=== PATIENT | female | born 1965 ===

== ENCOUNTER 2018-08-13 00:18 | Emergency (ER) | payer SELFPAY ==
--- NOTE | 2018-08-13 02:39 | XRay Report ---
PROCEDURE: RIGHT FOREARM TECHNIQUE: RIGHT forearm radiographs, AP and lateral views. CPT 46717 HISTORY: Trauma COMPARISONS: None . FINDINGS: Fracture (s) and/or Dislocation(s): There is a questionable fracture of the radial head. Additional elbow study may be helpful. . Joint space(s): Normal . Soft tissues: There appears to be displacement of the elbow fat pads suggesting possible intra-artic ular effusion. . Bone mineralization: Normal . Foreign bodies: None . IMPRESSION: There is a questionable fracture of the radial head. Additional elbow study may be helpf ul. . There is no joint dislocation. There appears to be displacement of the elbow fat pads suggesting poss ible intra-articular effusion. . . This document is electronically signed by Nate Hunt MD., August 13 2018 02:36:52 AM ET
--- NOTE | 2018-08-13 02:59 | Cat Scan Report ---
PROCEDURE: CT HEAD/BRAIN WO CON TECHNIQUE: Computerized tomography of the head was performed without contrast material. CT DOSE LENGTH PRODUCT: mGycm HISTORY: fall with swelling and pain to face COMPARISONS: None . FINDINGS: Skull and scalp: There is frontal scalp soft tissue swelling. There is left frontal and periorbital soft tissue swelling. There is no skull fracture. . There is a fracture of the medial wall of the left orbit. Paranasal sinuses: Normal . Ventricles and subarachnoid spaces: Normal . Cerebrum: No evidence of hemorrhage, acute infarction or mass . Cerebellum and brainstem: No evidence of hemorrhage, acute infarction or mass . Vasculature: Normal . IMPRESSION: There is no intracranial hemorrhage, edema, mass, mass effect or midline shift. There is frontal scalp soft tissue swelling. There is left frontal and periorbital soft tissue swelli ng. There is no skull fracture. There is a fracture of the medial wall of the left orbit. This document is electronically signed by Nate Hunt MD., August 13 2018 02:57:42 AM ET
--- NOTE | 2018-08-13 03:04 | Cat Scan Report ---
PROCEDURE: CT CERVICAL SPINE WO CON TECHNIQUE: Computerized tomography of the cervical spine was performed from the skull base to T1 wit hout contrast material. CT DOSE LENGTH PRODUCT: mGycm HISTORY: fall with swelling and pain to face COMPARISONS: None . FINDINGS: There is slight reversal of cervical lordosis. There are multilevel degenerative disc changes. There are no fractures or malalignments. Facet joints are intact. Prevertebral soft tissues are normal in t hickness. IMPRESSION: There is no acute bony or soft tissue abnormality. . This document is electronically signed by Nate Hunt MD., August 13 2018 03:02:38 AM ET
[2018-08-13] MEDS ORDERED: NORCO 5/325 PO ONE (05:27)
--- NOTE | 2018-08-13 06:04 | Cat Scan Report ---
PROCEDURE: CT FACIAL BONES WO CON TECHNIQUE: Routine axial imaging was obtained of the facial bones without contrast with sagittal and coronal reconstructions. HISTORY: fall orbital fx left COMPARISONS: None FINDINGS: There is extensive left prefrontal, supraorbital and left preseptal soft tissues swelling. The orbita l rims and floors appear intact. There is localized dehiscence of the medial wall of the left orbit. This may be a chronic injury. There is no evidence of air within the left orbit. The intraorbital str uctures otherwise are unremarkable. The sinuses revealed mild mucosal thickening in the maxillary sin uses with patchy mucosal thickening in the left ethmoid air cells. The nasal bones and zygomatic arch es appear intact. The mandible shows no evidence of acute injury. IMPRESSION: Extensive left prefrontal, supraorbital and left preseptal soft tissue swelling. Localized dehiscence of the medial wall of the left orbit which may be related to a chronic injury. N o evidence of left-sided intraorbital emphysema or acute injury otherwise. No evidence of acute facial bone fracture. Sinusitis as described.. This document is electronically signed by Wally Brown MD., August 13 2018 06:01:57 AM ET
--- NOTE | 2018-08-13 06:28 | Emergency Department Report ---
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 she slipped and fell on wet concrete floor last night impacting her face and elbow now at 6/10 left lateral facial pain IL posterior elbow pain there is no LOC during this incident there is no neck pain is no decrease in vision no nausea vomiting no syncopal episode no prodromal event patient states is his slipped there is no DEFORMITY NO SWELLING NOTED numbness or tingling range of motion is intact MD Complaint: fall Onset/Timin -: hour(s) Fall From: standing When Fall Occurred: 4-6 hours [employer]OSS [employer] Fall Witnessed: yes, by family Place Fall Occurred: work Loss of Consciousness: none Prolonged Down Time?: no Symptoms Prior to Fall: none Location: face Location - Extremities: Right: Elbow Severity: moderate Severity scale (0 -10): 7 Quality: sharp Context: tripped/slipped Associated Symptoms: headache. denies: neck pain, numbness, weakness, chest paint, shortness of breath, abdominal pain, hematuria, unable to walk, lightheaded, vertigo, confusion - Related Data Previous Rx's Medication Instructions Recorded Last Taken Type Acetaminophen/Codeine [Tylenol 1 tab PO Q6H PRN #12 tab 08/13/18 Unknown Rx /Codeine # 3 tab] Amoxicillin/Potassium Clav 1 each PO BID 10 Days #20 tablet 08/13/18 Unknown Rx [Augmentin 875-125 Tablet] Fluticasone [Flonase] 1 spray NS QDAY #1 bottle 08/13/18 Unknown Rx diphenhydrAMINE [Benadryl CAP] 25 mg PO Q6HR PRN #12 capsule 08/13/18 Unknown Rx predniSONE [Deltasone] 40 mg PO QDAY 5 Days #10 tab 08/13/18 Unknown Rx Allergies Allergy/AdvReac Type Severity Reaction Status Date / Time No Known Allergies Allergy Unverified 08/13/18 00:24 ED Review of Systems ROS: Stated complaint: FELL AT WORK/LT SIDE PAIN ON FACE & ARM Other details as noted in HPI Constitutional: denies: chills, fever, weakness Eyes: denies: eye pain, eye discharge, vision change ENT: congestion. denies: ear pain, throat pain, dental pain, hearing loss, epistaxis Respiratory: cough. denies: wheezing Cardiovascular: denies: chest pain, palpitations, edema, syncope, paroxysmal nocturnal dyspnea Endocrine: no symptoms reported, excessive sweating Gastrointestinal: denies: abdominal pain, nausea, vomiting, diarrhea, con stipation, hematemesis, melena, hematochezia Genitourinary: denies: urgency, dysuria, frequency, hematuria Musculoskeletal: other (elbow pain , facial pain ). denies: back pain, joint swelling, arthralgia Skin: denies: rash, lesions Neurological: denies: headache, weakness, numbness, paresthesias, confusion, abnormal gait, vertigo Psychiatric: denies: anxiety, depression Hematological/Lymphatic: denies: easy bleeding, easy bruising ED Past Medical Hx - Past Medical History Previous Medical History?: No - Surgical History Past Surgical History?: No - Social History Smoking Status: Never Smoker Substance Use Type: None - Medications Home Medications: Home Medications Medication Instructions Recorded Confirmed Last Taken Type Acetaminophen/Codeine [Tylenol 1 tab PO Q6H PRN #12 tab 08/13/18 Unknown Rx /Codeine # 3 tab] Amoxicillin/Potassium Clav 1 each PO BID 10 Days #20 tablet 08/13/18 Unknown Rx [Augmentin 875-125 Tablet] Fluticasone [Flonase] 1 spray NS QDAY #1 bottle 08/13/18 Unknown Rx diphenhydrAMINE [Benadryl CAP] 25 mg PO Q6HR PRN #12 capsule 08/13/18 Unknown Rx predniSONE [Deltasone] 40 mg PO QDAY 5 Days #10 tab 08/13/18 Unknown Rx ED Physical Exam - General Limitations: No Limitations General appearance: alert, in no apparent distress - Head Head exam: Present: normocephalic - Expanded Head Exam Expanded Head exam: Present: abrasion, contusion. Absent: hematoma, racoon eyes, patton's sign, general tenderness, tenderness of temporal artery, CSF rhinorrhea, CSF otorrhea - Eye Eye exam: Present: normal appearance, PERRL, EOMI, periorbital swelling, periorbital tenderness Pupils: Present: normal accommodation, other (rom inact there is no eye entrapment ) - Expanded Eye Exam Expanded Eyelids: Normal Inspection: Right Pupils: Regular, Round: Bilateral, Reactive: Bilateral Sclera/Conjunctival: Normal Inspection: Right, Injection: Left Anterior chamber: Normal Inspection: Bilateral Posterior chamber: Deferred: Bilateral Visual acuity (R) = 20/: 40 Visual acuity (L) = 20/: 40 With correction: No - ENT ENT exam: Present: normal orophraynx, mucous membranes moist - Expanded ENT Exam Expanded Ear exam: Present: normal external inspection, other (left maxillary sinus pain swellling mild erythema no crepitus no deforomity ) Mouth exam: Absent: trismus Teeth exam: Present: normal inspection Throat exam: Positive: normal inspection - Neck Neck exam: Present: normal inspection, full ROM. Absent: tenderness, meningismus, lymphadenopathy, thyromegaly - Respiratory Respiratory exam: Present: normal lung sounds bilaterally. Absent: respiratory distress, wheezes, stridor, chest wall tenderness - Cardiovascular Cardiovascular Exam: Present: regular rate, normal rhythm, normal heart sounds. Absent: systolic murmur, diastolic murmur, rubs, gallop - GI/Abdominal GI/Abdominal exam: Present: soft, normal bowel sounds. Absent: distended, tenderness, guarding, rebound, rigid, mass, pulsatile mass, hernia - Rectal Rectal exam: Present: deferred - Extremities Exam Extremities exam: Present: full ROM, tenderness (right posterior elbow pain at radial head ), normal capillary refill. Absent: pedal edema, joint swelling, calf tenderness - Expanded Upper Extremity Exam Right Shoulder Exam: Present: normal inspection, full ROM Upper Arm exam: Present: normal inspection, full ROM. Absent: tenderness, swelling Elbow exam: Present: full ROM, tenderness, swelling, pain w/ pr onation/supination, tenderness over radial head. Absent: abrasion, laceration, ecchymosis, deformity, crepidus, dislocation, erythema, effusion Forearm Wrist exam: Present: normal inspection, full ROM Hand Wrist exam: Present: normal inspection, full ROM. Absent: tenderness, swelling, abrasion, laceration, ecchymosis, deformity, crepidus, dislocation, erythema Neuro motor exam: Present: wrist extension intact, thumb opposition intact, thumb IP flexion intact, thumb adduction intact, fingers 2-5 abduction intact Neurosensory exam: Present: 2-point discrimination, radial nerve intact, ulnar nerve intact, median nerve intact Vascular: Present: normal capillary refill, radial pulse, brachial pulse, ulnar pulse. Absent: vascular compromise, Pallo, pulse deficit radial art, pulse deficit ulnar art, pulse deficit brachial art - Back Exam Back exam: Present: normal inspection, full ROM, tenderness, muscle spasm. Absent: CVA tenderness (R), CVA tenderness (L), paraspinal tenderness, vertebral tenderness, rash noted - Neurological Exam Neurological exam: Present: alert, oriented X3, CN II-XII intact, normal gait, reflexes normal - Psychiatric Psychiatric exam: Present: normal affect, normal mood - Skin Skin exam: Present: warm, dry, intact, normal color. Absent: rash ED Course Vital Signs 08/13/18 08/13/18 00:32 00:52 Temperature 99.3 F 99.3 F Pulse Rate 75 75 Respiratory 18 18 Rate Blood Pressure 195/91 195/91 O2 Sat by Pulse 98 98 Oximetry ED Medical Decision Making - Radiology Data Radiology results: report reviewed, image reviewed PROCEDURE: CT FACIAL BONES WO CON TECHNIQUE: Routine axial imaging was obtained of the facial bones without contrast with sagittal and coronal reconstructions. HISTORY: fall orbital fx left COMPARISONS: None FINDINGS: There is extensive left prefrontal, supraorbital and left preseptal soft tissues swelling. The orbital rims and floors appear intact. There is localized dehiscence of the medial wall of the left orbit. This may be a chronic injury. There is no evidence of air within the left orbit. The intraorbital structures otherwise are unremarkable. The sinuses revealed mild mucosal thickening in the maxillary sinuses with patchy mucosal thickening in the left ethmoid air cells. The nasal bones and zygomatic arches appear intact. The mandible shows no evidence of acute injury. IMPRESSION: Extensive left prefrontal, supraorbital and left preseptal soft tissue swelling. Localized dehiscence of the medial wall of the left orbit which may be related to a chronic injury. No evidence of left-sided intraorbital emphysema or acute injury otherwise. No evidence of acute facial bone fracture. Sinusitis as described.. This document is electronically signed by Michael Brown MD., August 13 2018 06:01:57 AM ET Transcribed By: RB Dictated By: MICHAEL BROWN MD Electronically Authenticated By: MICHAEL BROWN MD Signed Date/Time: 08/13/18 0604 DD/DT: 03/551 TD/TT: 08/13/18551 FINDINGS: Skull and scalp: There is frontal scalp soft tissue swelling. There is left frontal and periorbital soft tissue swelling. There is no skull fracture. . There is a fracture of the medial wall of the left orbit. Paranasal sinuses: Normal . Ventricles and subarachnoid spaces: Normal . Cerebrum: No evidence of hemorrhage, acute infarction or mass . Cerebellum and brainstem: No evidence of hemorrhage, acute infarction or mass . Vasculature: Normal . IMPRESSION: There is no intracranial hemorrhage, edema, mass, mass effect or midline shift. There is frontal scalp soft tissue swelling. There is left frontal and periorbital soft tissue swelling. There is no skull fracture. There is a fracture of the medial wall of the left orbit. This document is electronically signed by Nate Messina MD., August 13 2018 02:57:42 AM ET Transcribed By: CO Dictated By: NATE MESSINA MD Electronically Authenticated By: NATE MESSINA MD Signed Date/Time: 08/13/18258 DD/ 9 TD/TT: 08/13/18221is FINDINGS: Fracture (s) and/or Dislocation(s): There is a questionable fracture of the radial head. Additional elbow study may be helpful. . Joint space(s): Normal . Soft tissues: There appears to be displacement of the elbow fat pads suggesting possible intra- articular effusion. . Bone mineralization: Normal . Foreign bodies: None . IMPRESSION: There is a questionable fracture of the radial head. Additional elbow study may be helpful. . There is no joint dislocation. There appears to be displacement of the elbow fat pads suggesting possible intra-articular effusion. . . This document is electronically signed by Nate Messina MD., August 13 2018 02:36:52 AM ET Transcribed By: CO Dictated By: NATE MESSINA MD Electronically Authenticated By: NATE MESSINA MD Signed Date/Time: 08/13/18238 DD/ 5 TD/TT: 08/13/18225 PROCEDURE: CT CERVICAL SPINE WO CON TECHNIQUE: Computerized tomography of the cervical spine was performed from the skull base to T1 without contrast material. CT DOSE LENGTH PRODUCT: mGycm HISTORY: fall with swelling and pain to face COMPARISONS: None . FINDINGS: There is slight reversal of cervical lordosis. There are multilevel degenerative disc changes. There are no fractures or malalignments. Facet joints are intact. Prevertebral soft tissues are normal in thickness. IMPRESSION: There is no acute bony or soft tissue abnormality. . This document is electronically signed by Nate Messina MD., August 13 2018 03:02:38 AM ET Transcribed By: CO Dictated By: NATE MESSINA MD Electronically Authenticated By: NATE MESSINA MD Signed Date/Time: 08/13/18303 DD/ 4 TD/TT: 08/13/18224 - Medical Decision Making This is not a periorbital blowout fracture . Facial CT this seems as a chronic concern there is acute edema sinusitis likely unrelated plan Decadron Augmentin Tylenol threes exam is unremarkable except mild conjunctivitis likely irritation from trauma patient is PERRLA EOMI there is no entrapment moves without difficulty there is no nasal blood no blood is no posterior vertebral point tenderness to C-spine or else right elbow no gross deformity there is mild pain radial head consistent with x-ray plan posterior splint for same patient will follow orthopedic surgery for possible fracture. Closed radial head patient and Ophthalmology today patient will follow with [facility] doctor per [employer] policy patient is currently patient is ambulatory pain is reduced to 2/10 patient verbalizes agreement and understanding with these discharge plans i patient will be DC'd to home with family members via POV at this patient strict discharge is to return to ED should symptoms change or worsen , will perform splint check for accurate spacing and function prior to discharge to home. Critical care attestation.: If time is entered above; I have spent that time in minutes in the direct care of this critically ill patient, excluding procedure time. ED Disposition Clinical Impression: Fall Qualifiers: Encounter type: initial encounter Qualified Code(s): W19.XXXA - Unspecified fall, initial encounter Facial contusion Qualifiers: Encounter type: initial encounter Qualified Code(s): S00.83XA - Contusion of other part of head, initial encounter Facial fracture Qualifiers: Encounter type: initial encounter Facial bone/location: other facial bone Fracture type: closed Laterality: left Qualified Code(s): S02.82XA - Fracture of other specified skull and facial bones, left side, initial encounter for closed fracture Closed fracture of radial head Qualifiers: Encounter type: initial encounter Fracture alignment: nondisplaced Laterality: right Qualified Code(s): S52.124A - Nondisplaced fracture of head of right radius, initial encounter for closed fracture Disposition: TO HOME OR SELFCARE Is pt being admited?: No Does the pt Need Aspirin: No Condition: Stable Instructions: Facial Fracture (ED), Elbow Fracture in Adults (ED) Prescriptions: Amoxicillin/Potassium Clav [Augmentin 875-125 Tablet] 1 each PO BID 10 Days #20 tablet diphenhydrAMINE [Benadryl CAP] 25 mg PO Q6HR PRN #12 capsule PRN Reason: Congestion predniSONE [Deltasone] 40 mg PO QDAY 5 Days #10 tab Fluticasone [Flonase] 1 spray NS QDAY #1 bottle Acetaminophen/Codeine [Tylenol /Codeine # 3 tab] 1 tab PO Q6H PRN #12 tab PRN Reason: Pain , Severe (7-10) Referrals: DAYAN GOMEZNIMESHSABULA MD ARYA [Primary Care Provider] - 3-5 Days REJI MCGEE MD [Staff Physician] - 3-5 Days MARICARMEN RODARTE DDS [Staff Physician] - 3-5 Days Forms: Work/School Release Form(ED) Time of Disposition: 06:55
[2018-08-13 07:23] VITALS: BP 181/90
== END 2018-08-13 07:22 | disposition home or self-care (01) ==
LOC: ED 00:18
DX: S02.82XA Fracture of other specified skull and facial bones, left side, initial encounter for closed fracture (principal); S52.124A Nondisplaced fracture of head of right radius, initial encounter for closed fracture; S00.83XA Contusion of other part of head, initial encounter; W01.0XXA Fall on same level from slipping, tripping and stumbling without subsequent striking against object, initial encounter; Y93.89 Activity, other specified; Y92.89 Other specified places as the place of occurrence of the external cause; Y99.8 Other external cause status
CPT/HCPCS: 70450; 70486; 72125